=== PATIENT | male | born 2000 | race Caucasian/White ===

== ENCOUNTER 2018-07-03 14:31 | Emergency (ER) | payer BC ==
[2018-07-03 14:35] VITALS: TEMP 97.6
[2018-07-03] MEDS ORDERED: KETOROLAC 60 MG/2 ML VIAL IM STA (15:05)
[2018-07-03] MEDS ORDERED: ORPHENADRINE 30 MG/ML 2 ML VIAL IM STA (15:05)
--- NOTE | 2018-07-03 15:40 | ED ---
Chest Pain HPI - General Chief Complaint: Chest Pain Stated Complaint: Chest pain Time Seen by Provider: 07/03/18 14:37 Source: patient, RN notes reviewed, old records reviewed Mode of arrival: ambulatory Limitations: no limitations - History of Present Illness Initial Comments: Patient is a 17-year-old male who presents emergency department today with chief complaint of chest pain and discomfort. Symptoms started when he was in his walking to his car bent over to citrus picker a bag. 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 Patient reports that he recently sprained his ankle resume practice yesterday. Patient states that he has had no fevers or chills. No coughing. Denies any specific shortness of breath. He does report pain is worse with movement. - Related Data Previous Rx's Medication Instructions Recorded Cyclobenzaprine [Flexeril] 5 mg PO TID #10 tablet 07/03/18 Ibuprofen 600 mg PO TID #20 tablet 07/03/18 Allergies Allergy/AdvReac Type Severity Reaction Status Date / Time No Known Allergies Allergy Verified 07/03/18 15:48 Review of Systems ROS Statement: Those systems with pertinent positive or pertinent negative responses have been documented in the HPI. ROS Other: All systems not noted in ROS Statement are negative. EKG Findings - EKG Comments: EKG Findings:: EKG shows junctional bradycardia, abnormal EKG. Ventricular rate of 43 bpm. MT interval undetected. QRS ration 110 ms. QT QTc is 440/371 ms. Past Medical History Past Medical History: No Reported History History of Any Multi-Drug Resistant Organisms: None Reported Past Surgical History: No Surgical Hx Reported Past Psychological History: No Psychological Hx Reported Smoking Status: Current every day smoker Past Alcohol Use History: None Reported Past Drug Use History: None Reported General Exam - General Exam Comments Initial Comments: Well-appearing 17-year-old female. Alert and oriented 3. Patient appears in no acute distress. General: Well appearing, well nourished, in no distress. Oriented x 3, normal mood and affect . Ambulating without difficulty. Skin: Good turgor, no rash, unusual bruising or prominent lesions Hair: Normal texture and distribution. HEENT: Head: Normocephalic, atraumatic, no visible or palpable masses, depressions, or scaring. Eyes: Visual acuity intact, conjunctiva clear, sclera non-icteric, EOM intact, PERRL. Ears: EACs clear, TMs translucent & cone of light visualized. hearing intact. Nose: No external lesions, mucosa non-inflamed, septum and turbinates normal Mouth: Mucous membranes moist, no mucosal lesions. Teeth/Gums: No obvious caries or periodontal disease. No gingival inflammation or significant resorption. Pharynx: Mucosa non-inflamed, no tonsillar hypertrophy or exudate Neck: Supple, without lesions, bruits, or adenopathy, thyroid non-enlarged and non-tender Heart: No cardiomegaly or thrills; regular rate and rhythm, no murmur or gallop Lungs: Clear to auscultation and percussion, Patient has tenderness outpatient over the sternum and anterior ribs. Abdomen: Bowel sounds normal, no tenderness, organomegaly, masses, or hernia Back: Spine normal without deformity or tenderness, no CVA tenderness Extremities: No amputations or deformities, cyanosis, edema or varicosities, peripheral pulses intact Musculoskeletal: Normal gait and station. No misalignment, asymmetry, crepitation, defects, tenderness, masses, effusions, decreased range of motion, instability, atrophy or abnormal strength or tone in the head, neck, spine, ribs , pelvis or extremities. Neurologic: CN 2-12 normal. Sensation to pain, touch, and proprioception normal. DTRs normal in upper and lower extremities. No pathologic reflexes. Psychiatric: Oriented X3, intact recent and remote memory, judgment and insight , normal mood and affect. Limitations: no limitations Course Vital Signs 07/03/18 14:33 Temperature 97.6 F Pulse Rate 55 L Respiratory 20 Rate Blood Pressure 129/81 O2 Sat by Pulse 99 Oximetry Chest Pain MDM - [facility] 17-year-old male presents today with onset of chest pain and discomfort with movement. He reports that happened when he was at home and he bent over and picked something up. Please see muscle spelled full nature. His EKG was reviewed and negative for any acute process. Patient chest x-ray was negative for any acute process. At this time Patient was given IM Toradol and Norflex. He does report some improvement. Discussed that his pain seems to [place] nature with that being worse and movement. Patient's mother and Patient agree. We'll discharge the Patient with anti-inflammatory medication and short course of muscle relaxer. Discussed return parameters. All questions answered. Disposition Clinical Impression: Chest wall muscle strain Disposition: HOME SELF-CARE Condition: Good Instructions: Costochondritis (ED) Additional Instructions: Patient advised to take an temperature medications as prescribed. Follow-up with primary care physician. Ice the areas that are sore. Limit lifting and range of motion. Prescriptions: Cyclobenzaprine [Flexeril] 5 mg PO TID #10 tablet Ibuprofen 600 mg PO TID #20 tablet Is patient prescribed a controlled substance at d/c from ED?: No Referrals: Shiv Harvey MD [Primary Care Provider] - 1-2 days Time of Disposition: 16:17
--- NOTE | 2018-07-03 15:48 | XR ---
EXAMINATION TYPE: XR chest 2V DATE OF EXAM: 07/03/2018 COMPARISON: NONE HISTORY: Chest pain TECHNIQUE: Frontal and lateral views of the chest are obtained. FINDINGS: There is no focal air space opacity. No evidence for pneumothorax. No pleural effusion. The cardiac silhouette size is within normal limits. The osseous structures are grossly intact. IMPRESSION: 1. No acute cardiopulmonary process.
[2018-07-03 16:36] VITALS: BP 123/77; PULSE 50; RESP 16
== END 2018-07-03 16:36 | disposition home or self-care (01) ==
LOC: EC 14:31
DX: S29.011A Strain of muscle and tendon of front wall of thorax, initial encounter (principal); F17.200 Nicotine dependence, unspecified, uncomplicated; X50.1XXA Overexertion from prolonged static or awkward postures, initial encounter; Y93.01 Activity, walking, marching and hiking; Y92.009 Unspecified place in unspecified non-institutional (private) residence as the place of occurrence of the external cause
CPT/HCPCS: 93005; 71046; 99284; 96372 ×2; J2360; J1885